=== PATIENT | male | born 1995 | race Caucasian/White ===

== ENCOUNTER 2022-06-16 07:23 | Day surgery (SDC) | payer MEDICARE ==
[2022-06-16] MEDS ORDERED: Depo-Medrol 40 MG/ML IM ONE (07:24)
[2022-06-16] MEDS ORDERED: XYLOCAINE-MPF 1% 5ML SDV IJ ONE (07:24)
[2022-06-16] MEDS ORDERED: Sodium Chloride 0.9(Preservative Free) 10 ML IJ ONE (07:24)
[2022-06-16] MEDS ORDERED: DIPRIVAN 200 MG/20 ML IV ONE (08:51)
[2022-06-16] MEDS ORDERED: Lactated Ringers 1,000 ML IV ONE (10:15)
--- NOTE | 2022-06-16 11:15 | XRAY ---
Indication: Lumbar EYAD. Intraoperative fluoroscopy provided for 14 seconds. 2 digital spot image submitted for interpretation demonstrates midline posterior needle tip projecting just posterior to lumbosacral junction interspace. Small amount of contrast injected for needle tip placement. Correlate with intraoperative findings/report.
--- NOTE | 2022-06-16 11:17 | XRAY ---
14 seconds fluoroscopy time in surgery for lumbar EYAD.
== END 2022-06-16 09:09 | disposition home or self-care (01) ==
LOC: SDC-PAIN 07:23
PROVIDERS: ATTEND Psychiatry & Neurology Pain Medicine
DX: M54.16 Radiculopathy, lumbar region (principal); E11.9 Type 2 diabetes mellitus without complications; Z79.899 Other long term (current) drug therapy
CPT/HCPCS: 62323; 72100; 77003; 82947; J1030; J2704; Q9966

== ENCOUNTER 2022-11-10 06:40 | Day surgery (SDC) | payer MEDICARE ==
[2022-11-10] MEDS ORDERED: LIDOCAINE HCL 2% 100 MG/5 ML IJ ONE (06:41)
[2022-11-10] MEDS ORDERED: Depo-Medrol 40 MG/ML IM ONE (06:41)
[2022-11-10] MEDS ORDERED: Lactated Ringers 1,000 ML IV ONE (08:31)
[2022-11-10] MEDS ORDERED: DIPRIVAN 200 MG/20 ML IV ONE ×2 (08:49→08:57)
--- NOTE | 2022-11-10 10:14 | XRAY ---
Indication: Bilateral L4-S1 MBB. Intraoperative fluoroscopy provided for 17 seconds. Single digital spot image submitted for interpretation demonstrates posterior needle tips projecting over the expected left and right L4-S1 nerve roots. Correlate with intraoperative findings/report.
--- NOTE | 2022-11-10 10:24 | XRAY ---
17 seconds fluoroscopy time in surgery for bilateral L4-S1 MBB.
== END 2022-11-10 09:20 | disposition home or self-care (01) ==
LOC: SDC-PAIN 06:40
PROVIDERS: ATTEND Psychiatry & Neurology Pain Medicine
DX: M47.816 Spondylosis without myelopathy or radiculopathy, lumbar region (principal); R73.03 Prediabetes; Z79.899 Other long term (current) drug therapy
CPT/HCPCS: 64493; 64494; 72020; 77002; 82947; J1030; J2704